=== PATIENT | male | born 1995 | race Two or more races ===

== ENCOUNTER 2017-03-01 13:10 | Emergency (ER) | payer OTHER ==
[~2017-03-01] VITALS: Ht 177.8 cm; Wt 80.7 kg
[2017-03-01 13:10] VITALS: BP 151/86
== END 2017-03-01 14:48 | disposition home or self-care (01) ==
LOC: ER 13:18
DX: R04.0 Epistaxis (principal); R03.0 Elevated blood-pressure reading, without diagnosis of hypertension
CPT/HCPCS: 30901; 99284; A4606; Z7610